=== PATIENT | female | born 1995 | race Caucasian/White ===

== ENCOUNTER 2021-01-04 00:56 | Emergency (ER) | payer MEDICAID, OTHER ==
[~2021-01-04] VITALS: Ht 165.1 cm; Wt 63.5 kg
[2021-01-04 03:20] VITALS: BP 133/82
== END 2021-01-04 04:45 | disposition home or self-care (01) ==
LOC: ER 00:59
DX: L02.416 Cutaneous abscess of left lower limb (principal); R06.02 Shortness of breath; Z88.0 Allergy status to penicillin
CPT/HCPCS: 93005